=== PATIENT | male | born 1960 | race Caucasian/White ===

== ENCOUNTER 2017-09-11 21:40 | Emergency (ER) | payer BC ==
[~2017-09-11] VITALS: Ht 182.9 cm; Wt 98.4 kg
--- NOTE | ~2017-09-11 | EKG ---
[address] [place] [address] ELECTROCARDIOGRAM REPORT Name: SHERRI GRANADOS Room #: THEA Harris#: [id number] Admission: 09/11/17 Attend Phys: Discharge: 09/12/17 Date of : 60 Report #: [id number] THIS REPORT FOR: //name// [facility] ED Test Date: 2017-09-11 Test Time: 21:48:42 Pat Name: SHERRI GRANADOS Department: Room: Gender: [employer]: [facility] : 1960 Requested By: Ana Shay Order Number: [id number] MD: Santy Ordaz Measurements Intervals [place] Rate: 53 P: 52 VT: 156 QRS: 52 QRSD: 110 T: 24 QT: 454 QTc: 427 Interpretive Statements Sinus bradycardia Poor R wave progression No previous ECG available for comparison Electronically Signed On 09-12-2017 16:36:38 CDT by Santy Ordaz [email or web address] <ELECTRONICALLY SIGNED> By: Santy Ordaz MD, [facility] 09/12/17 1636 2148 2148 Santy Ordaz MD, FACC /EPI
[2017-09-11 22:10] LABS: BASOPHILS 0.8 % (0.0-2.0); EOSINOPHILS 3.2 % (0.0-3.0); HEMATOCRIT 39.9 % (42.0-52.0); HEMOGLOBIN 13.7 gm/dL (14.0-18.0); LYMPHOCYTES 23.2 % (24.0-44.0); MCH 30.3 pg (26.0-34.0); MCHC 34.4 g/dL (28.0-37.0); MCV 88.2 fL (80.0-100.0); MONOCYTES 6.3 % (1.0-8.0); PLATELET COUNT 229 thou/uL (150-400); POLYS 66.5 % (36.0-66.0); RBC 4.52 mil/uL (4.50-6.00); RDW 14.1 % (10.5-14.5)
[2017-09-11] MEDS ORDERED: COREG25 MG PO (22:17)
[2017-09-11] MEDS ORDERED: NORVASC5 MG PO (22:18)
[2017-09-11] MEDS ORDERED: COZAAR 50 MG TA50 M2 PO (22:18)
[2017-09-11] MEDS ORDERED: PROTONIX40 M1 PO (22:19)
[2017-09-11] MEDS ORDERED: [UNRECOGNIZED DRUG - OTHER] PO (22:20)
[2017-09-11 22:59] LABS: ALBUMIN 3.8 g/dL (3.4-5.0); CALCIUM 9.2 mg/dL (8.5-10.1); POTASSIUM 3.4 mmol/L (3.5-5.1); TOTAL BILIRUBIN 0.3 mg/dL (<0.1-1.0); TOTAL PROTEIN 7.5 g/dL (6.4-8.2)
[2017-09-12] MEDS ORDERED: VALIUM5 MG PO (00:05)
[2017-09-12] MEDS ORDERED: ANTIVERT25 MG PO (00:05)
[2017-09-12 00:11] LABS: URINE BILIRUBIN NEGATIVE (Negative); URINE BLOOD NEGATIVE (Negative); URINE CLARITY CLEAR; URINE COLOR YELLOW; URINE GLUCOSE-RANDOM* NEGATIVE (Negative); URINE KETONES NEGATIVE (Negative); URINE LEUKOCYTES NEGATIVE (Negative); URINE NITRITE NEGATIVE (Negative); URINE PROTEIN (DIPSTICK) NEGATIVE (Negative); URINE SPECIFIC GRAVITY >= 1.030 (1.005-1.035); URINE UROBILINOGEN 0.2 E.U./dl (0.2-1.0)
== END 2017-09-12 01:23 | disposition home or self-care (01) ==
LOC: ER 21:40
PROVIDERS: Physician Assistant
DX: R42 Dizziness and giddiness (principal)